=== PATIENT | male | born 1995 | race Caucasian/White ===

== ENCOUNTER 2017-11-22 15:21 | Emergency (ER) | payer BC, SELFPAY ==
[2017-11-22 15:21] VITALS: BP 119/84; PULSE 130; RESP 18; TEMP 37.6; O2SAT 129; BMI 18.1
--- NOTE | 2017-11-22 15:42 | ED.VISSUMM ---
- ER Visit Summary Date of Service: 11/22/17 Chief Complaint: Nausea, vomiting, diarrhea History of Present Illness: The patient is a 22 M with nausea, vomiting, diarrhea for the past 2 days. He states he has not had any symptoms since overnight hours. He does report having fever. He denies cough or congestion. He denies significant abdominal pain. 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 Physical Examination: Blood pressure is 119/84, temperature 99.7, heart rate 130, respiratory rate 18 Patient is in no acute distress and is nontoxic appearing. Head neck examination is significant for dry mucous membranes. Heart is tachycardic and regular. Lung sounds are clear. Abdomen is soft with no focal tenderness. Hypoactive bowel sounds are noted. Test Results: CBC was normal white count with 88% neutrophils. Chemistry studies normal. Urinalysis shows 50 ketones. Emergency Department Course and Treatment: Patient was treated 2 L of IV fluid and Zofran. On repeat evaluation he is tolerating p.o. Heart rate is improved to 107. He will be given a prescription for Zofran. Treatment Plan: [] Disposition: Discharge Impression: Viral gastroenteritis This note was generated with [employer] dictation software. It may contain incorrect words, spelling, and punctuation that were not noted in review of the chart prior to signing ED Disposition - Plan for ED Patient: Chief Complaint: Nausea/Vomiting/Diarrhea Referrals: [facility] Doctor,Out of [NON-STAFF] -
[2017-11-22] MEDS: Ondansetron 4 MG/2 ML Vial IV (16:26)
[2017-11-22] MEDS: 0.9% Normal Saline 1,000 ML 1000 ML IV ×2 (16:26→17:14)
[2017-11-22 16:34] LABS: Absolute Lymphocyte Count 0.51 X10^3/ul (0.83-4.51); Absolute Neutrophil Count 9.4 X10^3/uL (2.0-7.7); Basophil# 0.01 X10^3/uL; Basophil% 0.1 % (0-1); Differential Indicated SCAN CRITERIA MET; Eosinophil# 0.01 X10^3/uL; Eosinophils% 0.1 % (0-5); Hematocrit 44.1 % (40-54); Hemoglobin 14.9 g/dl (13.0-16.5); Lymphocyte # 0.51 X10^3/ul (4.0); Lymphocyte % 4.8 % (19-41); Mean Corp Hgb Conc 33.8 g/gl (32-36); Mean Corpuscular Hgb 29.9 pg (27.0-32.0); Mean Corpuscular Volume 88.4 fL (80-94); Mean Platelet Vol. 10.1 fl (6.2-12.0); Monocyte# 0.68 X10^3/uL; Monocyte% 6.4 % (0-10); Neutrophil % 88.5 % (47-70); POSITIVE COUNT NO; POSITIVE DIFFERENTIAL YES; POSITIVE MORPHOLOGY NO; Platelet Count 180 K/mm3 (150-450); RBC Distribution Width CV 12.4 % (11.6-14.6); RBC Distribution Width SD 39.7 fl (35.1-43.9); Red Blood Count 4.99 M/mm3 (4.6-6.2); White Blood Count 10.6 K/mm3 (4.4-11.0)
[2017-11-22 16:50] LABS: Anion Gap 8 (5-15); BUN 17 mg/dL (7-18); BUN/Creat Ratio 13.2 RATIO (10-20); Calcium,Total 8.8 mg/dL (8.5-10.1); Chloride 101 mmol/L (98-107); Creatinine, Serum 1.29 mg/dL (0.70-1.30); EST Glomerular Filtration Rate 75 mL/min (>60); Est Glom Filt Rate - Afr Amer 90 mL/min (>60); Estimated Creatinine Clearance 77.77 ml/min; Glucose 106 mg/dL (74-106); Potassium 3.8 mmol/L (3.5-5.1); Sodium Level 137 mmol/L (136-145)
[2017-11-22 17:24] LABS: Platelet Estimate ADEQUATE (ADEQ); Red Cell Morphology NORM C+C NORMAL (NORM C&C)
[2017-11-22 17:27] LABS: Red Blood Cells-Urine 0 SEEN /hpf (0-5)
[2017-11-22 17:44] LABS: Color, Urine Yellow (Yellow); Glucose, Dipstick Normal (Normal); Ketone-Dipstick 50 mg/dl (Negative); Leukocyte Esterase-Dipstick 25 /ul (Negative); Nitrite-Dipstick Negative (Negative); Occult Blood-Urine 10 /ul (Negative); Protein-Dipstick 15 mg/dl (Negative); Specific Gravity, Urine 1.015 (1.002-1.030); Urine Bilirubin Dipstick 1 mg/dL (Negative); Urine Clarity Clear (Clear); Urine Urobilinogen Normal (Normal)
[2017-11-22 17:45] LABS: White Blood Cells 0-5 SEEN /hpf (0-5)
[2017-11-22 17:46] LABS: Bacteria 1+ /hpf (None Seen); Mucous, Urine 1+ /hpf (<or=2+); Squamous Epithelial Cells - UA 0-5 SEEN /hpf (0-5)
[2017-11-22 19:09] VITALS: BP 106/53; PULSE 105; RESP 16; O2SAT 98
--- NOTE | 2017-11-22 19:15 | ED.DEP ---
ED Disposition - Plan for ED Patient: Disposition: Home or Assisted Living Chief Complaint: Nausea/Vomiting/Diarrhea Instructions: ED Gastroenteritis Viral Prescriptions: Ondansetron [Zofran Odt] 4 mg PO Q8H PRN PRN #10 tablet PRN Reason: Nausea Referrals: [facility] Doctor,Out of [NON-STAFF] - Center,[facility] [GROUP OF PHYSICIANS] - 1 Day
[2017-11-22 19:23] VITALS: BP 106/53; PULSE 105; RESP 16; O2SAT 98
== END 2017-11-22 19:31 | disposition home or self-care (01) ==
PROVIDERS: Emergency Provider Emergency Medicine; Family Provider Pediatrics; PCP Pediatrics
DX: A08.4 Viral intestinal infection, unspecified (principal); Z90.49 Acquired absence of other specified parts of digestive tract
CPT/HCPCS: 80048; 81001; 85025; 96361; 96374; 99283; J7030; A4216; J2405